=== PATIENT | male | born 1950 | race Caucasian/White ===

== ENCOUNTER 2021-09-12 06:17 | Emergency (ER) | payer OTHER ==
[2021-09-12 06:54] VITALS: BP 165/76; PULSE 60; TEMP 98.3; BMI 31.8
== END 2021-09-12 07:55 | disposition home or self-care (01) ==
LOC: JER 06:17
DX: H10.023 Other mucopurulent conjunctivitis, bilateral (principal)
CPT/HCPCS: 99283-25